=== PATIENT | female | born 1995 | race Two or more races ===

== ENCOUNTER 2017-11-24 22:36 | Emergency (ER) | payer OTHER ==
[~2017-11-24] VITALS: Ht 154.9 cm; Wt 49.9 kg
[~2017-11-24 22:36] MED LIST: BIAXIN500 MG PO
[2017-11-24] MEDS: FAMOTIDINE 20 MG/2 ML VIAL IV STA (22:45)
[2017-11-24] MEDS: SODIUM CHLORIDE 0.9% 1000ML 1,000 ML IV ONE (22:45)
[2017-11-24] MEDS: ONDANSETRON HCL INJ 2 MG/ML VIAL IV STA (22:45)
[2017-11-24] MEDS: METHYLPREDNISOLONE SOD SUCC 125 MG/2ML VIAL IV ONE (22:45)
[2017-11-24] MEDS: DIPHENHYDRAMINE HCL INJ 50 MG/ML VIAL IV ONE (22:45)
[2017-11-24 22:56] LABS: BASOPHILS # (AUTO) 0.1 (0.0-0.1); BASOPHILS % 0.4 % (0.0-1.0); EOSINOPHILS # (AUTO) 0.2 (0.0-0.4); EOSINOPHILS % 2.1 % (0.0-6.0); HEMATOCRIT 44.5 % (34.2-44.1); HEMOGLOBIN 14.1 g/dL (12.0-16.0); LYMPHOCYTES # (AUTO) 3.3 (1.0-3.2); LYMPHOCYTES % 28.5 % (18.0-39.1); MEAN CORPUSCULAR HEMOGLOBIN 22.2 pg (28-32); MEAN CORPUSCULAR HGB CONC 31.7 g/dL (31-35); MONOCYTES % 8.2 % (4.4-11.3); NEUTROPHILS % 60.5 % (38.7-80.0); PLATELET COUNT 275 x10e3/uL (140-360); RED BLOOD COUNT 6.36 x10e6/uL (3.6-5.1); RED CELL DISTRIBUTION WIDTH 15.1 % (11.7-14.4)
--- NOTE | 2017-11-24 23:17 | Diagnostic Imaging Report ---
EXAMINATION: CHEST SINGLE (PORTABLE) INDICATION: Shortness of breath COMPARISON: None FINDINGS: TUBES and LINES: None. LUNGS: Lungs are well inflated. Lungs are clear. There is no evidence of pneumonia or pulmonary edema. PLEURA: No pleural effusion or pneumothorax. HEART AND MEDIASTINUM: The cardiomediastinal silhouette is unremarkable. BONES AND SOFT TISSUES: No acute osseous lesion. Soft tissues are unremarkable. UPPER ABDOMEN: No free air under the diaphragm. IMPRESSION: No acute thoracic abnormality. Signed by: Dr. Sherif David M.D. on 11/24/2017 11:14 PM
[2017-11-24 23:19] LABS: ALBUMIN/GLOBULIN RATIO 1.4 (0.8-2.0); ALKALINE PHOSPHATASE 40 IU/L (40-150); ANION GAP 15.4 mmol/L (8-16); BLOOD UREA NITROGEN 17 mg/dL (7-26); BUN/CREATININE RATIO 21 (6-25); CALCIUM 9.5 mg/dL (8.4-10.2); CARBON DIOXIDE 23 mmol/L (22-29); CHLORIDE 102 mmol/L (98-107); EST GLOMERULAR FILTRATION RATE > 60 ML/MIN (60-); GLUCOSE 107 mg/dL (74-118); POTASSIUM 3.4 mmol/L (3.5-5.1); SODIUM 137 mmol/L (136-145)
[2017-11-24 23:21] LABS: ALANINE AMINOTRANSFERASE < 6 IU/L (0-55)
[2017-11-24 23:26] VITALS: BP 103/68
== END 2017-11-24 23:49 | disposition home or self-care (01) ==
LOC: ER 22:36
DX: L50.0 Allergic urticaria (principal); T61.784A Other shellfish poisoning, undetermined, initial encounter
CPT/HCPCS: 36415; 71045; 80053; 85025; 99284